=== PATIENT | male | born 2000 | race African-American/Black ===

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

== ENCOUNTER 2018-03-07 20:25 | Emergency (ER) | payer MEDICAID ==
[~2018-03-07] VITALS: Ht 180.3 cm; Wt 106.0 kg
[2018-03-07 22:57] VITALS: BP 125/65
== END 2018-03-07 23:00 | disposition home or self-care (01) ==
LOC: ER 22:14
DX: S60.512A Abrasion of left hand, initial encounter (principal); L03.114 Cellulitis of left upper limb; F12.10 Cannabis abuse, uncomplicated; R03.0 Elevated blood-pressure reading, without diagnosis of hypertension; W01.0XXA Fall on same level from slipping, tripping and stumbling without subsequent striking against object, initial encounter; Y93.67 Activity, basketball; Y92.89 Other specified places as the place of occurrence of the external cause
CPT/HCPCS: 73130; 99284

== ENCOUNTER 2018-08-24 00:19 | Emergency (ER) | payer MEDICAID ==
[~2018-08-24] VITALS: Ht 177.8 cm; Wt 77.0 kg
[2018-08-24] MEDS ORDERED: KETOROLAC 30MG/ML VIAL IV ONE (01:00)
[2018-08-24 02:41] VITALS: BP 99/47
== END 2018-08-24 02:49 | disposition home or self-care (01) ==
LOC: ER 00:19
DX: R07.89 Other chest pain (principal); F12.10 Cannabis abuse, uncomplicated
CPT/HCPCS: 71045; 93005; 96374; 99283; J1885

== ENCOUNTER 2019-06-14 23:52 | Emergency (ER) | payer MEDICAID ==
[~2019-06-14] VITALS: Ht 177.8 cm; Wt 75.0 kg
[2019-06-15 00:15] VITALS: BP 130/78
== END 2019-06-15 01:58 | disposition left against medical advice (07) ==
LOC: ER 23:52
DX: Z53.21 Procedure and treatment not carried out due to patient leaving prior to being seen by health care provider (principal)